=== PATIENT | male | born 1995 | race Caucasian/White ===

== ENCOUNTER 2016-06-21 | Emergency (ER) | payer BC, OTHER ==
[~2016-06-21] VITALS: Ht 188 cm; Wt 84.0 kg
[~2016-06-21] MED LIST: FEXO1TAB46 PO
[2016-06-21 00:13] VITALS: TEMP 36.4; Ht 188 cm; Wt 84.0 kg
[2016-06-21] MEDS ORDERED: ALUMINUM/MAGNESIUM SUSP 30 ML UDC PO STA (00:20)
[2016-06-21] MEDS ORDERED: LIDOCAINE HCL 2% VISC SOLN 20 ML UDC PO STA (00:20)
[2016-06-21 00:22] VITALS: O2SAT 100
[2016-06-21 00:47] LABS: HEMATOCRIT 42.2 % (42-52); MEAN CELL VOLUME 88.3 fL (80-100); MEAN CORPUSCULAR HGB CONC 35.1 g/dl (32-36); MEAN PLATELET VOLUME 10.7 fL (7.4-10.4); PLATELET COUNT 231 K/uL (130-400); RED BLOOD COUNT 4.78 M/uL (4.7-6.1); WHITE BLOOD COUNT 5.92 K/uL (4.8-10.8)
[2016-06-21] MEDS ORDERED: ATEN-173 PO (00:54)
[2016-06-21 01:05] LABS: ALT/SGPT 21 U/L (12-78); AST/SGOT 16 U/L (15-37); BLOOD UREA NITROGEN 17 mg/dl (7-18); BUN/CREATININE RATIO 15.7 (10-20); CALCIUM 9.4 mg/dl (8.5-10.1); CARBON DIOXIDE 28 mmol/L (21-32); CHLORIDE 105 mmol/L (98-107); GLUCOSE 98 mg/dl (70-99); POTASSIUM 3.6 mmol/L (3.5-5.1); SODIUM 146 mmol/L (136-145)
[2016-06-21 01:11] LABS: ALKALINE PHOSPHATASE 67 U/L (45-117); CKMB/CK RATIO 1.3 (0-3.0)
[2016-06-21 01:22] LABS: BASO % 0.8 %; BASO ABS # 0.05 K/uL (0-0.2); COMPLETE YES; EOS % 5.1 %; IG% 0.2 %; LYMPH % 51.9 %; LYMPH ABS # 3.07 K/uL (1.2-3.4); MONO % 14.4 %; NEUT % 27.6 %
[2016-06-21 01:45] VITALS: BP 128/72; PULSE 102; O2SAT 100
--- NOTE | 2016-06-21 04:33 | EMERGENCY ROOM VISIT NOTE ---
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 pt reports that he has had palpitations since january and has been worked up and diagnosed with pvc's. pt was placed on atenolol in april. pain has now subsided. hx anxiety History of Present Illness The patient is a 20 year old male who presents to the Emergency Room with complaints of midsternal chest pain for the past few hours that lasts for split- second that has been intermittent for the past several months. Patient had an extensive workup in the past that was unremarkable besides PVCs on Holter monitor. Patient suffers from anxiety. He states he has not found a counselor yet. Patient denies prolonged chest pain, fever, chills, dyspnea, prolonged palpitations, lightheadedness, dizziness, leg pain or swelling, abdominal pain or recent travel. He does not smoke. No drugs. No alcohol. Patient thinks it might be reflux. Review of Systems See HPI for pertinent positives & negatives. A total of 10 systems reviewed and were otherwise negative. Past Medical/Surgical History Medical Problems: (1) Acute pharyngitis (2) Acute pharyngitis (3) Allergic reaction (4) Anxiety (5) Post-nasal drip (6) Sore throat (7) Tachycardia (8) URI (upper respiratory infection) (9) URI (upper respiratory infection) Surgical Problems: (1) History of wisdom tooth extraction Family History No significant family history Social History Smoking Status: Never Smoker Alcohol Use: occasionally Marital Status: single Housing Status: lives with roommate Occupation Status: [employer] student Current/Historical Medications Scheduled Atenolol (Tenormin), 25 MG PO DAILY Allergies Coded Allergies: Amoxicillin (Verified Adverse Reaction, Unknown, Diarrhea, 06/21/16) Clavulanic Acid (Verified Adverse Reaction, Unknown, Diarrhea, 06/21/16) Physical Exam Vital Signs Date Time Temp Pulse Resp B/P Pulse Ox O2 Delivery O2 Flow Rate FiO2 06/21/16 01:45 102 16 128/72 100 Room Air 06/21/16 00:22 100 Room Air 06/21/16 00:14 99 06/21/16 00:13 100 Room Air 06/21/16 00:13 36.4 98 20 146/89 100 Room Air Pain Rating (0-10): 0 Physical Exam VITALS: Vitals are noted on the nurse's note and reviewed by myself. Vital signs stable. GENERAL: Pleasant male anxious-appearing, in no acute distress, nondiaphoretic, well-developed well-nourished. SKIN: The skin was without rashes, erythema, edema, or bruising. There is no tenting of the skin. Capillary reflex less than 2 seconds. HEAD: Normocephalic atraumatic. EARS: External auditory canals clear, tympanic membranes pearly gillis without erythema or effusion bilaterally. EYES: Pupils equal round and reactive to light and accommodation. Conjunctivae without injection, sclerae without icterus. Extraocular movements intact. NOSE: Patent, turbinates without inflammation or discharge. MOUTH: Mucous membranes moist. Pharynx without erythema or exudate. Uvula midline. Airway patent. Tongue does not deviate. NECK: Supple without nuchal rigidity. No lymphadenopathy. No thyromegaly. Cervical spine is nontender. No JVD. HEART: Regular rate and rhythm without murmurs gallops or rubs. LUNGS: Clear to auscultation bilaterally without wheezes, rales or rhonchi. No dullness to percussion. No retractions or accessory muscle use. ABDOMEN: Positive bowel sounds x 4. Normal tympanic percussion. Soft, nontender, without masses or organomegaly. Snyder sign negative. No guarding or rebound tenderness. MUSCULOSKELETAL: No muscle atrophy, erythema, or edema noted. NEURO: Patient was alert and oriented to person place and time. Normal sensation to light and sharp touch. No focal neurological deficits. Medical Decision & Procedures Laboratory Results 06/21/16 00:21 Red Blood Count 4.78, Mean Corpuscular Volume 88.3, Mean Corpuscular Hemoglobin 31.0, Mean Corpuscular Hemoglobin Concent 35.1, Mean Platelet Volume 10.7, Neutrophils (%) (Auto) 27.6, Lymphocytes (%) (Auto) 51.9, Monocytes (%) (Auto) 14.4, Eosinophils (%) (Auto) 5.1, Basophils (%) (Auto) 0.8, Neutrophils # (Auto ) 1.64, Lymphocytes # (Auto) 3.07, Monocytes # (Auto) 0.85, Eosinophils # (Auto ) 0.30, Basophils # (Auto) 0.05 06/21/16 00:21 Test 06/21/16 00:21 White Blood Count 5.92 K/uL (4.8-10.8) Red Blood Count 4.78 M/uL (4.7-6.1) Hemoglobin 14.8 g/dL (14.0-18.0) Hematocrit 42.2 % (42-52) Mean Corpuscular Volume 88.3 fL (80-100) Mean Corpuscular Hemoglobin 31.0 pg (25-34) Mean Corpuscular Hemoglobin Concent 35.1 g/dl (32-36) Platelet Count 231 K/uL (130-400) Mean Platelet Volume 10.7 fL (7.4-10.4) Neutrophils (%) (Auto) 27.6 % Lymphocytes (%) (Auto) 51.9 % Monocytes (%) (Auto) 14.4 % Eosinophils (%) (Auto) 5.1 % Basophils (%) (Auto) 0.8 % Neutrophils # (Auto) 1.64 K/uL (1.4-6.5) Lymphocytes # (Auto) 3.07 K/uL (1.2-3.4) Monocytes # (Auto) 0.85 K/uL (0.11-0.59) Eosinophils # (Auto) 0.30 K/uL (0-0.5) Basophils # (Auto) 0.05 K/uL (0-0.2) RDW Standard Deviation 40.2 fL (36.4-46.3) RDW Coefficient of Variation 12.6 % (11.5-14.5) Immature Granulocyte % (Auto) 0.2 % Immature Granulocyte # (Auto) 0.01 K/uL (0.00-0.02) Red Blood Cell Morphology Unremarkable Anion Gap 13.0 mmol/L (3-11) Est Creatinine Clear Calc Drug Dose 122.5 ml/min Estimated GFR () 109.9 Estimated GFR (Non- 94.8 BUN/Creatinine Ratio 15.7 (10-20) Calcium Level 9.4 mg/dl (8.5-10.1) Total Bilirubin 0.5 mg/dl (0.2-1) Direct Bilirubin 0.1 mg/dl (0-0.2) Aspartate Amino Transf (AST/SGOT) 16 U/L (15-37) Alanine Aminotransferase (ALT/SGPT) 21 U/L (12-78) Alkaline Phosphatase 67 U/L (45-117) Total Creatine Kinase 134 U/L (39-308) Creatine Kinase MB 1.7 ng/ml (0.5-3.6) Creatine Kinase MB Ratio 1.3 (0-3.0) Troponin I < 0.015 ng/ml (0-0.045) Total Protein 8.0 gm/dl (6.4-8.2) Albumin 4.5 gm/dl (3.4-5.0) Lipase 134 U/L (73-393) Medications Administered Medications (Trade) Dose Ordered Sig/Jesus Route Start Time Stop Time Status Last Admin Dose Admin Lidocaine HCl (Viscous Lidocaine 2% Soln) 10 ml NOW STAT PO 06/21/16 00:20 06/21/16 00:22 DC 06/21/16 00:42 10 ML Al Hydroxide/Mg Hydroxide (Maalox Susp) 30 ml NOW STAT PO 06/21/16 00:20 06/21/16 00:22 DC 06/21/16 00:42 30 ML ED Course Prior records/ancillary studies reviewed. Triage Nursing notes reviewed. The patient's history was concerning for chest pain. Differential diagnosis: Etiologies such as cardiac ischemia, aortic dissection, pulmonary embolism, pneumonia, pneumothorax, musculoskeletal, infections, pericarditis, myocarditis , esophageal rupture, gastrointestinal, as well as others were entertained. Physical examination: As above. ER treatment provided: GI cocktail On reassessment the patient felt better. Diagnostic interpretation by me: The electrocardiogram was negative for pathologic change. Normal Sinus, normal intervals, no acute ST-T wave changes. Impression normal sinus rhythm interpreted by myself The labs revealed negative troponin Imaging studies: Chest x-ray with no acute consolidation, pneumothorax or free air per my interpretation Exam and history seem consistent with noncardiac chest pain. Patient was given a list of therapists in the area. He seemed acutely was dwelling over every small thing that happened to him and either stated this. Patient states he was afraid that he had cancer and would . He was advised to follow-up health services for for further medical workup if this is his desire. Either way he was referred back to health services for follow-up next few days. Patient had unremarkable workup as above. No acute findings. He was advised to return to the ER immediately for chest pain, difficulty breathing, worsening signs or symptoms or as needed. By the evaluation outlined above emergent etiologies such as cardiac ischemia, aortic dissection, pulmonary embolism, pneumonia, pneumothorax, infections, pericarditis, myocarditis, gastrointestinal, as well as others were deemed relatively unlikely. The pt informed about the findings as listed above. All questions were answered and pleased with the treatment. Return instructions were outlined and the patient was discharged in stable condition. Referral: The patient was referred back to primary care physician for follow-up in 2 to 3 days for a recheck of the current condition. Case reviewed with my attending Medical Decision As above Impression Primary Impression: Non-cardiac chest pain Departure Information Dispostion Home / Self-Care Condition GOOD Forms HOME CARE DOCUMENTATION FORM, School Instructions, Return To School: 1 day IMPORTANT VISIT INFORMATION Patient Instructions Chest Pain - [facility], [facility] Additional Instructions Ibuprofen(Motrin, Advil) may be used for fever or pain. Use 600mg every six hours as needed. Take with food. Avoid using more than 2400mg in a 24 hour period. Do not use 2400mg per day for more than three consecutive days without physician direction. Prolonged inappropriate use can lead to stomach upset or ulcers. (AND/OR) Acetaminophen(Tylenol) may be used for fever or pain. Use 1000mg every six hours as needed. Avoid using more than 3000mg in a 24 hour period. Rest and drink plenty of fluids as tolerated. Continue current medications. Avoid strenuous activities and anything that worsens your pain. Resume normal activities once your symptoms resolve. Return to the ER immediately for worsening or persistent chest pain, abdominal pain, vomiting, fevers, chest pains, difficulty breathing, worsening of your condition, or as needed. Follow up with your primary physician in 2-3 days for a recheck of your current condition. School Instructions Return To School: 1 day
--- NOTE | 2016-06-21 06:57 | DIAGNOSTIC IMAGING REPORT ---
CHEST ONE VIEW PORTABLE CLINICAL HISTORY: Atypical chest pain COMPARISON STUDY: 02/08/2016 FINDINGS: The cardiac and mediastinal contours are normal. There is no evidence of focal pulmonary consolidation. There is no evidence of failure. No pleural effusions are visualized.[ IMPRESSION: No active disease in the chest. Electronically signed by: Jamaal Machuca M.D. 06/21/2016 6:55 AM Dictated Date/Time: 06/21/2016 6:55 AM
== END 2016-06-21 02:09 | disposition home or self-care (01) ==
LOC: C.EDB 00:01
DX: R07.89 Other chest pain (principal); F41.9 Anxiety disorder, unspecified